=== PATIENT | female | born 1930 | race Two or more races ===

== ENCOUNTER 2017-08-29 15:10 | Inpatient (IN) | payer MEDICAID, MEDICARE ==
[~2017-08-29] VITALS: Ht 167.6 cm; Wt 68.0 kg
[2017-08-29] MEDS ORDERED: CYCL30DR EACHEYE (16:59)
[2017-08-29] MEDS ORDERED: PIOG30TA2 PO (16:59)
[2017-08-29] MEDS ORDERED: ERYT3.5O9 EACHEYE (16:59)
[2017-08-29] MEDS ORDERED: NEPA1.7D EACHEYE (16:59)
[2017-08-29] MEDS ORDERED: GLIM2TAB PO (16:59)
[2017-08-29] MEDS ORDERED: ATOR10TA PO (16:59)
[2017-08-29] MEDS ORDERED: LATA2.5D2 EACHEYE (16:59)
[2017-08-29] MEDS ORDERED: CLOP75TA2 PO (16:59)
[2017-08-29] MEDS ORDERED: TRAM50TA2 PO (16:59)
[2017-08-29] MEDS ORDERED: LACT10SO PO (16:59)
[2017-08-29] MEDS ORDERED: INSU100I4 SQ ×2 (16:59)
[2017-08-29] MEDS ORDERED: MULT-213 PO (16:59)
[2017-08-29] MEDS ORDERED: CRAN425C PO (16:59)
[2017-08-29] MEDS ORDERED: PANT40TA2 PO (16:59)
[2017-08-29] MEDS ORDERED: HYDROCODONE/APAP 5/325MG 1 EACH TABLET PO PRN (20:00)
[2017-08-29] MEDS ORDERED: MAG HYDROX/AL HYDROX/SIMETH 30 ML UDC PO PRN (20:00)
[2017-08-29] MEDS ORDERED: MAGNESIUM HYDROXIDE 30 ML UDC PO PRN (20:00)
[2017-08-29] MEDS ORDERED: DEXTROSE 50%-WATER 50 ML DISP.SYRIN IV PRN (20:00)
[2017-08-29] MEDS ORDERED: ZOLPIDEM TARTRATE 5 MG TABLET PO PRN (20:00)
[2017-08-29] MEDS ORDERED: ONDANSETRON HCL/PF 4 MG/2 ML VIAL IVP PRN (20:00)
[2017-08-29] MEDS ORDERED: ACETAMINOPHEN 325 MG TABLET PO PRN (20:00)
[2017-08-29] MEDS ORDERED: Z GUARD REMEDY 2 OZ OINT TP PRN (20:00)
[2017-08-29] MEDS ORDERED: TRAMADOL HCL 50 MG TABLET ONE (20:56)
[2017-08-29] MEDS: BLOOD SUGAR DIAGNOSTIC 1 EACH STRIP VI SCH (21:22)
[2017-08-29] MEDS: LATANOPROST EYE DROP 0.005% 2.5 ML BOTTLE EACHEYE SCH (21:23)
[2017-08-29] MEDS: ERYTHROMYCIN BASE OPHTH 3.5 GM TUBE EACHEYE SCH (21:28)
[2017-08-29] MEDS: TRAMADOL HCL 50 MG TABLET PO SCH (21:28)
[2017-08-29] MEDS: ATORVASTATIN 10 MG TABLET PO SCH (21:28)
[2017-08-29] MEDS ORDERED: ZOLPIDEM TARTRATE 5 MG TABLET ONE (21:36)
--- NOTE | 2017-08-29 21:41 | NUR ---
medicated patient as ordered. vss.
[2017-08-30 00:05] VITALS: BP 135/67
--- NOTE | 2017-08-30 00:16 | NUR ---
87 Y/O FEMALE PLACED IN TRANSITION 14. NO S/S OF DISTRESS AT THIS TIME. REPORT RECIEVED FROM PRIOR RN. CONTINUE TO MONITOR PT.
--- NOTE | 2017-08-30 02:18 | NUR ---
PT RESTLESS. CONTINUE TO MONITOR
--- NOTE | 2017-08-30 04:00 | NUR ---
PT FINALLY ASLEEP.
[2017-08-30 05:13] VITALS: BP 123/63
--- NOTE | 2017-08-30 06:05 | NUR ---
PT RESTING COMFORTABLY. ACCU CHECK [id number]
[2017-08-30 06:24] LABS: BASOPHILS % (AUTO) 0.6 % (0.0-2.0); CALCIUM, SERUM 9.8 mg/dL (8.5-10.1); CARBON DIOXIDE 32 mmol/L (21-32); CHLORIDE 104 mmol/L (98-107); CREATININE 0.9 mg/dL (0.6-1.3); EOSINOPHILS # (AUTO) 0.2 /CMM (0.0-0.7); EOSINOPHILS % (AUTO) 4.6 % (0.0-6.0); GLUCOSE 175 mg/dL (74-106); HEMATOCRIT 39 % (33-45); HEMOGLOBIN 12.7 g/dL (11.5-14.8); LYMPHOCYTES # (AUTO) 1.5 /CMM (0.8-4.8); LYMPHOCYTES % (AUTO) 30.2 % (20.0-44.0); MAGNESIUM 2.3 mg/dL (1.8-2.4); MEAN CORPUSCULAR HEMOGLOBIN 31 PG (26.0-33.0); MEAN CORPUSCULAR HGB CONC 33 g/dl (31.0-36.0); MEAN CORPUSCULAR VOLUME 93 fL (82-100); MONOCYTES # (AUTO) 0.3 /CMM (0.1-1.30); MONOCYTES % (AUTO) 5.1 % (2.0-12.0); NEUTROPHILS % (AUTO) 59.5 % (43.0-81.0); PHOSPHORUS 3.6 mg/dL (2.5-4.9); PLATELET COUNT (AUTO) 263 /CMM (150-450); POTASSIUM 4.5 mmol/L (3.5-5.1); RDW COEFFICIENT OF VARIATION 15.7 (11.5-15.0); RED BLOOD CELL COUNT(AUTO) 4.15 MIL/uL (4.0-5.2); SODIUM SERUM 141 mmol/L (136-145); UREA NITROGEN, BLOOD 22 mg/dL (7-18); WHITE BLOOD COUNT (AUTO) 5.1 K/uL (4.3-11.0)
[2017-08-30] MEDS: BLOOD SUGAR DIAGNOSTIC 1 EACH STRIP VI SCH ×4 (07:30→22:10)
[2017-08-30 08:00] VITALS: BP 127/68
--- NOTE | 2017-08-30 08:00 | NUR ---
PT AO MONGOLIAN SPEAKING, VSS. DENIED CHEST PAIN, DENIES SOB, SAT 96-99% ON RA.
[2017-08-30] MEDS ORDERED: NEPAFENAC EACHEYE SCH (09:00)
[2017-08-30] MEDS ORDERED: Medication Not On Formulary EA (Cranberry Extract (Cranberry) 425 MG) PO SCH (09:00)
--- NOTE | 2017-08-30 10:00 | NUR ---
PT MEDICATED ORDERED
[2017-08-30] MEDS: PIOGLITAZONE HCL 15 MG TABLET PO SCH (10:15)
[2017-08-30] MEDS: ERYTHROMYCIN BASE OPHTH 3.5 GM TUBE EACHEYE SCH ×4 (10:15→22:10)
[2017-08-30] MEDS: LACTULOSE 10 G/15 ML UDC (PYXIS) PO SCH (10:16)
[2017-08-30] MEDS: CLOPIDOGREL BISULFATE 75 MG TABLET PO SCH (10:17)
[2017-08-30] MEDS: *INSULIN REGULAR(HUMULIN R)HUM 100 UNIT/ML VIAL SQ PRN ×2 (10:25→22:14)
[2017-08-30] MEDS: GLIMEPIRIDE 4 MG TABLET PO SCH (10:28)
--- NOTE | 2017-08-30 12:00 | NUR ---
DR MCCLOUD IS HERE TO SEE PT. UPDATED ON PROGRESS.
[2017-08-30] MEDS: INSULIN REGULAR, HUMAN 100 UNIT/ML 3 ML VIAL SQ PRN (12:06)
[2017-08-30] MEDS: PANTOPRAZOLE 40 MG TABLET.DR PO SCH (13:25)
[2017-08-30] MEDS: MULTIVIT, IRON, MIN NO. 8, FA 1 TAB PO SCH (13:25)
[2017-08-30 16:00] VITALS: BP 138/68
--- NOTE | 2017-08-30 17:45 | NUR ---
MS RN OPENING NOTES RECEIVED PT FROM ER NURSE IN STABLE CONDITION. SHE WILL BE ADMITTED UNDER DR. MCCLOUD WITH A DIAGNOSIS OF SMOKE INHALATION. PT IS A/O X3. NO SOB OR SIGNS OF DISTRESS NOTED. BREATHING IS EVEN AND UNLABORED. PT IS ON RA AND SATING WELL @ 96%. WILL ORIENT PT TO HER ROOM, COMPLETE ADMISSION PROCESS AND CONTINUE TO MONITOR.
[2017-08-30 20:00] VITALS: BP 126/56
[2017-08-30] MEDS: ATORVASTATIN 10 MG TABLET PO SCH (22:10)
[2017-08-30] MEDS: TRAMADOL HCL 50 MG TABLET PO SCH (22:10)
[2017-08-30] MEDS ORDERED: LATANOPROST EYE DROP 0.005% 2.5 ML BOTTLE ONE (22:16)
[2017-08-30] MEDS: LATANOPROST EYE DROP 0.005% 2.5 ML BOTTLE EACHEYE SCH (22:22)
[2017-08-31] MEDS: BLOOD SUGAR DIAGNOSTIC 1 EACH STRIP VI SCH ×4 (06:10→23:25)
[2017-08-31] MEDS: PANTOPRAZOLE 40 MG TABLET.DR PO SCH (06:51)
[2017-08-31] MEDS: INSULIN REGULAR, HUMAN 100 UNIT/ML 3 ML VIAL SQ PRN ×2 (06:54→12:55)
--- NOTE | 2017-08-31 07:39 | NUR ---
MS RN CLOSING NOTES PT REMAINS STABLE. NO ACUTE CHANGES IN CONDITION DURING SHIFT. ALL NEEDS MET AND ANTICIPATED FOR.ALL DUE MEDS GIVEN. NO SOB OR SIGNS OF RESPIRATORY DISTRESS THROUGHOUT SHIFT. WILL ENDORSE TO DAYSHIFT NURSE FOR FRANCES
--- NOTE | 2017-08-31 07:51 | NUR ---
MS RN OPENING NOTES. PT RECEIVED A&0X3, BENGALI SPEAKING ONLY. PT TOLERATING ROOM AIR WITH NO SOB. PT IS WITHOUT IVC, ENDORSED MD AWARE. PT REPORTING NO PAIN AND IS WITHOUT S/S OF DISTRESS OR DISCOMFORT. PT BRIEFED ON TODAY'S POC, AND IS WITHOUT CONCERN OR COMPLAINT AT THIS TIME.
[2017-08-31 08:00] VITALS: BP 116/65
[2017-08-31] MEDS: CLOPIDOGREL BISULFATE 75 MG TABLET PO SCH (09:43)
[2017-08-31] MEDS: ERYTHROMYCIN BASE OPHTH 3.5 GM TUBE EACHEYE SCH ×4 (09:43→21:46)
[2017-08-31] MEDS: PIOGLITAZONE HCL 15 MG TABLET PO SCH (09:45)
[2017-08-31] MEDS: GLIMEPIRIDE 4 MG TABLET PO SCH (09:45)
[2017-08-31] MEDS: MULTIVIT, IRON, MIN NO. 8, FA 1 TAB PO SCH (09:47)
[2017-08-31] MEDS: LACTULOSE 10 G/15 ML UDC (PYXIS) PO SCH (10:05)
[2017-08-31 16:00] VITALS: BP 115/78
--- NOTE | 2017-08-31 18:09 | NUR ---
RN NOTES. ACUTEST BGL IS 59MG/DL AT 1746. PT A&0X3 WITH NO S/S OF HYPOGLYCEMIA, PER PROTOCOL 50ML DEXTROSE INJECTION ADMINISTERED. WILL RE EVALUATE.
--- NOTE | 2017-08-31 19:29 | NUR ---
MS RN CLOSING NOTES. PT A&0X3, RESTING IN BED WATCHING T.V, IN GOOD SPIRITS. PT TOLERATING ROOM AIR WITH NO SOB. PT WITH IVC AT R FOREARM INTACT AND SL. PT WITHOUT PAIN AT THIS TIME. PT WITH S/S OF HYPOGLYCEMIA. ALL DAY NURSE DUTIES ATTENDED TO, PT WITHOUT CONCERN OR COMPLAINT AT THIS TIME. WILL ENDORSE TO NIGHT NURSE.
[2017-08-31 20:00] VITALS: BP 108/52
--- NOTE | 2017-08-31 20:00 | NUR ---
MS ALUMINUM BOAT INSPECTOR INITIAL NOTES' SEEN PT IN BED AWAKE AND ALERT WATCHING TV AT THIS TIME. HEPLOCK PATENT AND INTACT. NO SOB NOTED. KEPT HER WARM AND COMFORTABLE AT ALL TIME. AWARE HOW TO USED THE CALL LIGHT , ENCOURAGE HER TO USE IT IF SHE NEEDS SOME HELPED. BED ALARM SET FOR SAFETY. WILL CONTINUE TO MONITOR.
[2017-08-31] MEDS: ATORVASTATIN 10 MG TABLET PO SCH (21:44)
[2017-08-31] MEDS: TRAMADOL HCL 50 MG TABLET PO SCH (21:45)
[2017-08-31] MEDS: LATANOPROST EYE DROP 0.005% 2.5 ML BOTTLE EACHEYE SCH (21:45)
[2017-08-31] MEDS: *INSULIN REGULAR(HUMULIN R)HUM 100 UNIT/ML VIAL SQ PRN (23:27)
--- NOTE | 2017-08-31 23:30 | NUR ---
SENIOR BUSINESS DEVELOPMENT ANALYST/NOTES BLOOD SUGAR CHECKED DONE 220, 4 UNITS OF INSULIN GIVEN CORI SQ ORDERED. NO SIGNS OF HYPER GLYCEMIA NOTED. PT DENIES ANY DISCOMFORT. SNACKS ALSO SERVED. WILL CONTINUE TO MONITOR.PLACE CALL LIGHT AT REACH.
--- NOTE | 2017-09-01 02:35 | NUR ---
MS ASSOCIATE OF SCIENCE IN NURSING NOTES PT SLEEPING AT THIS TIME WITHOUT ANY ACUTE DISTRESS NOTED. RESPIRATION EVEN AND UN-LABORED, KEPT HER WARM AND COMFORTABLE AT ALL TIMES. PLACE CALL LIGHT AT REACH. WILL CONTINUE MONITORING.
[2017-09-01] MEDS: BLOOD SUGAR DIAGNOSTIC 1 EACH STRIP VI SCH ×2 (06:22→12:07)
[2017-09-01] MEDS: INSULIN REGULAR, HUMAN 100 UNIT/ML 3 ML VIAL SQ PRN (06:29)
--- NOTE | 2017-09-01 07:10 | NUR ---
CROWNING INSPECTOR/ CLOSING NOTES BLOOD SUGAR CHECKED AFTER MORNING CARE DONE, 210, 6 UNITS OF INSULIN GIVEN CORI SQ ORDERED. HOT TEA ALSO SERVED. PT SLEPT WELL AND STABLE CORI THE NIGHT. ALL DUE MEDS GIVEN AND ALL NEEDS MET. KEPT HER WARM AND COMFORTABLE AT ALL TIMES. REPOSITION PT FOR COMFORT. ON SEMI FOWLERS POSITION WITH SIDE RAILS X2 UP AND BED IN LOW AND LOCK IN POSITION. PLACE CALL LIGHT AT REACH. ENDORSE TO AM NURSE FOR CONTINUITY OF CARE.
--- NOTE | 2017-09-01 07:25 | NUR ---
RN OPENING NOTES RECEIVED PATIENT IN BED RESTING, RESPONSIVE, A/OX3. NO ACUTE DISTRESS, NO SOB. DENIES PAIN OR DISCOMFORT. IV SITE INTACT AND PATENT. KEPT PATIENT SAFE AND COMFORTABLE. BED IN LOW POSITION, LOCKED, SIDERAILS UPX2, HOB ELEVATED, CALL LIGHT IN REACH. WILL CONTINUE TO MONITOR ACCORDINGLY.
[2017-09-01 08:00] VITALS: BP 114/60
[2017-09-01] MEDS: CLOPIDOGREL BISULFATE 75 MG TABLET PO SCH (08:44)
[2017-09-01] MEDS: PANTOPRAZOLE 40 MG TABLET.DR PO SCH (08:44)
[2017-09-01] MEDS: GLIMEPIRIDE 4 MG TABLET PO SCH (08:45)
[2017-09-01] MEDS: MULTIVIT, IRON, MIN NO. 8, FA 1 TAB PO SCH (08:45)
[2017-09-01] MEDS: LACTULOSE 10 G/15 ML UDC (PYXIS) PO SCH (08:47)
[2017-09-01] MEDS: PIOGLITAZONE HCL 15 MG TABLET PO SCH (09:00)
[2017-09-01] MEDS: ERYTHROMYCIN BASE OPHTH 3.5 GM TUBE EACHEYE SCH ×2 (09:05→12:17)
[2017-09-01] MEDS: *INSULIN REGULAR(HUMULIN R)HUM 100 UNIT/ML VIAL SQ PRN (12:13)
[2017-09-01 16:00] VITALS: BP 118/60
--- NOTE | 2017-09-01 16:40 | NUR ---
CUTTER HAND NOTES DISCHARGE PATIENT IN STABLE CONDITION ACCOMPANIED BY CONFERENCE MANAGER VIA [place]. DISCHARGE INSTRUCTIONS GIVEN TO PATIENT AND SNF RN. DISCHARGE PAPERWORK GIVEN TO CONFERENCE MANAGER. REPORT GIVEN TO BHANU LANGSTON FROM [facility]. ALL BELONGINGS GIVEN, UPPER AND LOWER DENTURES IN PLACE, BELONGINGS FORM SIGNED. DISCONTINUED IV SITE, APPLIED PRESSURE, NO BLEEDING, NO COMPLICATIONS.
== END 2017-09-01 16:40 | DRG 816 ==
LOC: EDBD 15:14 → ER 15:14 → TRANSITION 17:26 → MED 08-30 16:38
PROVIDERS: ADMIT Internal Medicine; ATTEND Internal Medicine
DX: T59.811A Toxic effect of smoke, accidental (unintentional), initial encounter (principal); E11.51 Type 2 diabetes mellitus with diabetic peripheral angiopathy without gangrene; R06.03 Acute respiratory distress; F03.90 Unspecified dementia, unspecified severity, without behavioral disturbance, psychotic disturbance, mood disturbance, and anxiety; J70.5 Respiratory conditions due to smoke inhalation; G62.9 Polyneuropathy, unspecified; I10 Essential (primary) hypertension; K21.9 Gastro-esophageal reflux disease without esophagitis; Z79.4 Long term (current) use of insulin; Z89.612 Acquired absence of left leg above knee; Z89.611 Acquired absence of right leg above knee; Y92.129 Unspecified place in nursing home as the place of occurrence of the external cause
CPT/HCPCS: 36415; 80048-TC; 82962-TC; 83735-TC; 84100-TC; 85025-TC; 87081-TC; A4606; J1815; J2405; Z7610